=== PATIENT | female | born 1970 | race Caucasian/White ===

== ENCOUNTER 2022-01-19 10:12 | Emergency (ER) | payer OTHER, BC ==
[2022-01-19] MEDS: Ketorolac 30 MG/ML SDV IM ONE (10:50)
[2022-01-19] MEDS: Ketorolac 30 MG/ML SDV ONE (11:00)
== END 2022-01-19 11:50 | disposition home or self-care (01) ==
LOC: LB.ED 10:12
DX: M79.672 Pain in left foot (principal); Z79.899 Other long term (current) drug therapy
CPT/HCPCS: 73610-LT; 73630-LT; 96372; 99283-25; J1885